=== PATIENT | female | born 1990 | race Caucasian/White ===

== ENCOUNTER 2016-06-01 11:57 | Emergency (ER) | payer OTHER ==
[~2016-06-01] VITALS: Ht 162.6 cm; Wt 61.5 kg
[~2016-06-01 11:57] MED LIST: CEPH-443 PO; LEVO500T72 PO
[2016-06-01 12:01] VITALS: Ht 162.6 cm; Wt 61.5 kg
[2016-06-01] MEDS ORDERED: AMOX1TAB10 PO (14:32)
[2016-06-01] MEDS ORDERED: NAPR-688 PO (14:32)
--- NOTE | 2016-06-02 03:56 | ERD ---
DATE OF SERVICE: 06/01/2016 HISTORY OF PRESENT ILLNESS: The patient is a 25-year-old female who presents with sore throat as we ll as gland swelling in her neck. This has been present for about 1 week. She states it is uncomfo rtable to swallow. Denies fevers, chills. Denies shortness of breath. The patient was seen here a pproximately 2 months ago and states that she was given an antibiotic when she had a similar problem and then her sore throat and swelling resolved. She states that it has now returned. REVIEW OF SYSTEMS: A 10-point review of systems is negative except as in HPI. PAST MEDICAL HISTORY: Pancreatic mass. PAST SURGICAL HISTORY: Pancreatic mass removal and . FAMILY HISTORY: Noncontributory. SOCIAL HISTORY: Denies tobacco, occasionally drinks socially, denies other drugs. PHYSICAL EXAMINATION VITAL SIGNS: Temperature 97.8, pulse 88, blood pressure 121/73, respirations 20, oxygen saturation 97% on room air. GENERAL: No acute distress. HEENT: Bilateral tonsillar swelling with very mild erythema. No exudates. Uvula is midline and mo bile. No unilateral swelling or asymmetry. NECK: Enlarged left anterior cervical lymph node that is mobile and mildly tender. EMERGENCY DEPARTMENT COURSE AND MEDICAL DECISION MAKING: The patient likely has an infectious proce ss causing tonsillar swelling and anterior cervical lymphadenopathy. Last time she had a similar pr esentation, it resolved with antibiotics. At this time, I am going to discharge her with Augmentin. I am going to give her a 10-day course of this as well as instructions to see her primary care doc tor for an ENT referral as she has had repeat symptoms. I am also giving her naproxen for pain and inflammation. I gave her return precautions to the ER as well. DISCHARGE DIAGNOSES: 1. Tonsillitis. 2. Cervical lymphadenopathy. DISPOSITION: Home in stable condition. Dictated By: SAMANTA KELLOGG Conf#: [id number] DID#: [id number]
== END 2016-06-01 14:40 | disposition home or self-care (01) ==
LOC: FTE 11:57
DX: J03.90 Acute tonsillitis, unspecified (principal); R59.0 Localized enlarged lymph nodes
CPT/HCPCS: 99283

== ENCOUNTER 2016-10-09 14:48 | Emergency (ER) | payer OTHER ==
[~2016-10-09] VITALS: Ht 157.5 cm; Wt 60.0 kg
[~2016-10-09 14:48] MED LIST changes: +AMOX1TAB10 PO; +NAPR-688 PO
[2016-10-09 15:13] VITALS: Ht 157.5 cm; Wt 60.0 kg
[2016-10-09] MEDS ORDERED: KETOROLAC 30 MG INJ IV STA (15:35)
[2016-10-09] MEDS ORDERED: SOD CHLORIDE 0.9% 1,000 ML IV STA (15:35)
[2016-10-09 15:50] LABS: URINE BLOOD (Dip) POC Negative (NEGATIVE)
[2016-10-09] MEDS ORDERED: DEXAMETHASONE 10 MG/ML 1 ML INJ IV ONE (16:00)
[2016-10-09 16:12] LABS: ADD SCAN DIFF NO
[2016-10-09 16:17] LABS: BASOPHILS % 0.4 % (0.0-2.0); EOSINOPHILS # 0.3 10^3/ul (0.0-0.5); HEMATOCRIT 41.3 % (37.0-47.0); HEMOGLOBIN 13.4 g/dl (12.0-16.0); LYMPHOCYTES # 4.1 10^3/ul (0.8-2.9); LYMPHOCYTES % 45.4 % (15.0-51.0); MEAN CORPUSCULAR HEMOGLOBIN 30.6 pg (29.0-33.0); MEAN CORPUSCULAR HGB CONC 32.4 g/dl (32.0-37.0); MEAN CORPUSCULAR VOLUME 94.3 fl (82.0-101.0); MEAN PLATELET VOLUME 10.9 fl (7.4-10.4); MONOCYTE # 1.2 10^3/ul (0.3-0.9); MONOCYTES % 12.7 % (0.0-11.0); NEUTROPHIL # 3.4 10^3/ul (1.6-7.5); NEUTROPHILS % 38.1 % (39.0-77.0); PLATELET COUNT 338 10^3/UL (140-415); RED BLOOD COUNT 4.38 10^6/ul (4.20-5.40); RED CELL DISTRIBUTION WIDTH 13.2 % (11.5-14.5)
[2016-10-09 16:33] LABS: ALBUMIN 4.5 g/dl (3.3-4.9); POTASSIUM 4.4 mmol/L (3.5-5.1)
[2016-10-09 16:35] LABS: CREATININE 0.55 mg/dl (0.44-1.00)
[2016-10-09 16:36] LABS: ALBUMIN/GLOBULIN RATIO 1.25; BILIRUBIN,INDIRECT 0.1 mg/dl (0-1.1); BILIRUBIN,TOTAL 0.1 mg/dl (0.2-1.3); TOTAL PROTEIN 8.1 g/dl (6.1-8.1)
[2016-10-09 16:37] LABS: CALCIUM 9.3 mg/dl (8.4-10.2)
--- NOTE | 2016-10-09 16:54 | ERD ---
ER Documentation Chief Complaint Date/Time DATE: 10/09/16 Chief Complaint Fever, Sore throat HPI The patient is a 26-year-old female with history of recurrent tonsillitis who presents to the Emergency Department with complaint of fever, body aches and sore throat. The patient reports that her symptoms began almost one week ago, with onset of fevers, chills, body aches and sore throat. The throat pain is constant, and worsened upon eating. She reports a history of tonsillitis in the past, for which she is being scheduled for outpatient tonsillectomy by ENT. She has a follow-up appointment to schedule her surgery on October 28. However, she presents today due to recurrent symptoms. She rates her current pain as 7/ 10. It is aching in nature. She denies any recent dental procedures, infections or trauma. Denies difficulty opening/closing the mouth, difficulty tolerating her oral secretions, or any change in phonation. Denies excessive drooling. Denies difficulty tolerating solids/liquids, despite the pain associated. Denies neck pain, neck stiffness, new rashes, rhinorrhea, nasal congestion, cough or ear pain. No other complaints at this time. ROS All systems reviewed and are negative except as per history of present illness. Medications Home Meds Active Scripts Ibuprofen* (Motrin*) 600 Mg Tab, 600 MG PO Q6, #30 TAB Prov:DENNIS MCKEON PA-C 10/09/16 Amoxicillin* (Amoxicillin*) 500 Mg Cap, 500 MG PO TID for 10 Days, CAP Prov:DENNIS MCKEON PA-C 10/09/16 Amoxicillin/Potassium Clav (Amox-Clav 875-125 mg Tablet) 875-125 mg Tab, 1 TAB PO BID, #20 TAB Prov:SAMANTA CHUNG DO 06/01/16 Naproxen* (Naproxen*) 500 Mg Tablet, 500 MG PO BID, #14 TAB Prov:SAMANTA CHUNG DO 06/01/16 Levofloxacin* (Levaquin*) 500 Mg Tablet, 500 MG PO DAILY, #7 TAB Prov:MATT LARA MD 03/15/16 Cephalexin* (Keflex*) 500 Mg Capsule, 500 MG PO TID, #21 CAP Prov:MATT LARA MD 03/15/16 Allergies Allergies: Coded Allergies: No Known Allergies (Verified Allergy, Unknown, 03/12/16) PMhx/Soc History of Surgery: Yes (caesarian x 2,removal of tumor in the pancreas) Anesthesia Reaction: No Hx Neurological Disorder: No Hx Respiratory Disorders: No Hx Cardiac Disorders: No Hx Psychiatric Problems: No Hx Miscellaneous Medical Probl: No Hx Alcohol Use: Yes (socially) Hx Substance Use: No Hx Tobacco Use: No Physical Exam Vitals Vital Signs Date Time Temp Pulse Resp B/P Pulse Ox O2 Delivery O2 Flow Rate FiO2 10/09/16 15:13 98.4 84 20 88/57 96 Physical Exam GENERAL: Well-developed, well-nourished, in no acute distress. HEENT: Head is normocephalic, atraumatic. No scleral pallor or icterus. Pupils equal, round and reactive to light. Extraocular movements intact. Conjunctiva pink. Bilaterally tympanic membranes are clear with no evidence of erythema, effusion or dulling of the light reflex. Moist mucous membranes. Posterior pharynx is erythematous with 3+ tonsils and exudates noted bilaterally. Uvula is midline. No trismus, stridor or excessive drooling. No pooling of oral secretions. No submandibular swelling. No brawny induration. Phonation is normal. NECK: Supple. Tender anterior cervical lymphadenopathy. Trachea midline. No nuchal rigidity. Full range of motion. No meningismus. RESPIRATORY: Lungs are clear to auscultation bilaterally. No rales, rhonchi or wheezing. Equal breath sounds. Normal expiratory effort. CARDIOVASCULAR: Regular rate and rhythm. S1 and S2 normal. No murmurs, rubs, or gallops. GASTROINTESTINAL: Abdomen is soft, nontender, and nondistended. Normal bowel sounds. EXTREMITIES: No clubbing, cyanosis, or edema. Normal skin perfusion. Moving all extremities. No focal swelling or erythema. NEUROLOGIC: The patient is alert, awake, and oriented. Nonfocal exam. INTEGUMENT: Skin is clean, dry and intact. No rashes, lesions or petechiae present. Normal turgor. PSYCHIATRIC: Appropriate; Cooperative. Result Diagram: 10/09/16 1545 10/09/16 1545 Results 24 hrs Laboratory Tests Test 10/09/16 15:45 10/09/16 15:51 White Blood Count 9.010^3/ul Red Blood Count 4.3810^6/ul Hemoglobin 13.4g/dl Hematocrit 41.3% Mean Corpuscular Volume 94.3fl Mean Corpuscular Hemoglobin 30.6pg Mean Corpuscular Hemoglobin Concent 32.4g/dl Red Cell Distribution Width 13.2% Platelet Count 29923^3/UL Mean Platelet Volume 10.9fl Neutrophils % 38.1% Lymphocytes % 45.4% Monocytes % 12.7% Eosinophils % 3.0% Basophils % 0.4% Nucleated Red Blood Cells % 0.0/100WBC Neutrophils # 3.410^3/ul Lymphocytes # 4.110^3/ul Monocytes # 1.210^3/ul Eosinophils # 0.310^3/ul Basophils # 0.010^3/ul Nucleated Red Blood Cells # 0.010^3/ul Sodium Level 142mmol/L Potassium Level 4.4mmol/L Chloride Level 109mmol/L Carbon Dioxide Level 29mmol/L Anion Gap 8 Blood Urea Nitrogen 17mg/dl Creatinine 0.55mg/dl Glucose Level 86mg/dl Calcium Level 9.3mg/dl Total Bilirubin 0.1mg/dl Direct Bilirubin 0.00mg/dl Indirect Bilirubin 0.1mg/dl Aspartate Amino Transf (AST/SGOT) 42IU/L Alanine Aminotransferase (ALT/SGPT) 66IU/L Alkaline Phosphatase 71IU/L Total Protein 8.1g/dl Albumin 4.5g/dl Globulin 3.60g/dl Albumin/Globulin Ratio 1.25 Bedside Urine pH (LAB) 6.0 Bedside Urine Protein (LAB) Negative Bedside Urine Glucose (UA) Negative Bedside Urine Ketones (LAB) Negative Bedside Urine Blood Negative Bedside Urine Nitrite (LAB) Negative Bedside Urine Leukocyte Esterase (L Negative Current Medications Medications (Trade) Dose Ordered Sig/Christa Route PRN Reason Start Time Stop Time Status Last Admin Dose Admin Sodium Chloride (NS) 1,000 ml @ 1,000 mls/hr Q1H STAT IV 10/09/16 15:35 10/09/16 16:34 DC 10/09/16 15:51 Ketorolac Tromethamine (Toradol) 30 mg ONCE STAT IV 10/09/16 15:35 10/09/16 15:37 DC 10/09/16 15:51 Dexamethasone 10 mg 10 mg ONCE ONCE IV 10/09/16 16:00 10/09/16 16:01 DC 10/09/16 15:51 Ampicillin Sodium/ Sulbactam Sodium (Unasyn 3gm/NS (Pmx)) 100 ml @ 100 mls/hr ONCE ONCE IVPB 10/09/16 17:00 10/09/16 17:59 DC 10/09/16 17:03 Procedures/MDM This is a 26-year-old female presenting to the Emergency Department complaining of sore throat and fever. She is non-toxic appearing and exhibits no meningeal signs. On physical examination the patient's posterior pharynx is erythematous, with exudates noted bilaterally. She had tender anterior cervical lymphadenopathy. The differential diagnosis includes, but is not limited to, pharyngitis, laryngitis, epiglottitis, peritonsillar abscess, Kulwant's angina, mononucleosis, allergic reaction, candidiasis, stomatitis, foreign body, dental pain, pneumonia. The patient's condition remained stable during her stay. After rest and administration of Decadron, Toradol, Fluids and Unasyn, the patient reports no new complaints and decreased pain. She is able to tolerate POs with no difficulty. Given that the patient presented with recent fever, tonsillar exudates, tender anterior cervical lymphadenopathy and no cough, she fulfilled all four conditions of the Cent[employer] Criteria, and I believe that the patient's symptoms are most consistent with exudative pharyngitis, likely streptococcal. Uvula is midline. There was no uvular deviation, submandibular swelling, brawny induration, elevation of the tongue, change in phonation, tripoding. I do not suspect peritonsillar abscess, retropharyngeal abscess, Kulwant's angina, epiglottitis or any other emergent medical condition. At this time, the patient is in stable condition, and therefore can be discharged home with prescriptions for ibuprofen and amoxicillin, and given strict return precautions for signs of deteriorating or worsening condition. She is advised to follow-up with her primary care provider/ENT specialist for reevaluation and further management within the next 2-3 days, or return to the ER sooner for any new or worsening symptoms. I shared my medical decision making and plan with the patient at length and in great detail, and she verbally understands and agrees with the plan for further observation and care as an outpatient. At the time of discharge , all questions were answered. Departure Diagnosis: Primary Impression: Exudative tonsillitis Additional Impression: Acute febrile illness Condition: Stable Patient Instructions: Pharyngitis, Strep (Presumed) Additional Instructions: Follow up with your ENT specialist/primary medical provider in 2-3 days for reevaluation and further management. Return to the ED sooner for any new or worsening symptoms. EDNNIS MCKEON PA-C October 09, 2016 16:54
[2016-10-09] MEDS ORDERED: AMO500 PO (16:55)
[2016-10-09] MEDS ORDERED: IBUP-1542 PO (16:55)
[2016-10-09] MEDS ORDERED: AMPICILLIN/SULB 3 GM/NS (PMX) 100 ML IVPB ONE (17:00)
== END 2016-10-09 18:15 | disposition home or self-care (01) ==
LOC: FTE 14:48
DX: J03.90 Acute tonsillitis, unspecified (principal)
CPT/HCPCS: 36415; 80053; 81003; 85025; 96374; 96375; J0295; J1100; J1885; J7030; Z7502

== ENCOUNTER 2016-12-17 00:34 | Emergency (ER) | payer OTHER ==
[~2016-12-17] VITALS: Ht 157.5 cm; Wt 60.0 kg
[~2016-12-17 00:34] MED LIST changes: +AMO500 PO; +IBUP-1542 PO
[2016-12-17 00:39] VITALS: Ht 157.5 cm; Wt 60.0 kg
[2016-12-17] MEDS ORDERED: IBUP100O10 PO (01:42)
[2016-12-17] MEDS ORDERED: PRED50TA PO (01:42)
[2016-12-17] MEDS ORDERED: AMOX250S25 PO (01:42)
--- NOTE | 2016-12-17 01:52 | ERD ---
ER Documentation Chief Complaint Date/Time DATE: 12/17/16 TIME: 01:50 Chief Complaint Chronic tonsilitis. Hard to swallow hot or cold food. dif breathing sleepin HPI 26-year-old female presents here in emergency department for complaints of sore throat for one week, patient has history of chronic tonsillitis, has seen an ENT specialist, is scheduled to possibly have removal of her tonsils. Last seen ENT specialist approximately 1 month ago. Patient states that the sore throat, worst this week, throbbing pain, 6/10 scale, is worse upon swallowing. Patient states that she has difficulty breathing and swallowing at times. Patient denies any stridor at this time. Patient denies any difficulty breathing at this time. Patient has had these problems for years now. Patient denies any fever or chills. Patient took ibuprofen for pain with mild relief. ROS All systems reviewed and are negative except as per history of present illness. Medications Home Meds Active Scripts Ibuprofen (Ibuprofen) 100 Mg/5 Ml Oral.susp, 30 ML PO Q6H Y for PAIN AND OR ELEVATED TEMP, #16 OZ Prov:DIANA GARCIA NP 12/17/16 Amoxicillin/Potassium Clav* (Augmentin*) 250 Mg/5 Ml Susp.recon, 10 ML PO Q8 for 10 Days Prov:DIANA GARCIA NP 12/17/16 Prednisone* (Prednisone*) 50 Mg Tablet, 50 MG PO DAILY, #5 TAB Prov:DIANA GARCIA NP 12/17/16 Ibuprofen* (Motrin*) 600 Mg Tab, 600 MG PO Q6, #30 TAB Prov:DENNIS MCKEON PA-C 10/09/16 Amoxicillin* (Amoxicillin*) 500 Mg Cap, 500 MG PO TID for 10 Days, CAP Prov:DENNIS MCKEON PA-C 10/09/16 Amoxicillin/Potassium Clav (Amox-Clav 875-125 mg Tablet) 875-125 mg Tab, 1 TAB PO BID, #20 TAB Prov:SAMANTA CHUNG DO 06/01/16 Naproxen* (Naproxen*) 500 Mg Tablet, 500 MG PO BID, #14 TAB Prov:SAMANTA CHUNG DO 06/01/16 Levofloxacin* (Levaquin*) 500 Mg Tablet, 500 MG PO DAILY, #7 TAB Prov:MATT LARA MD 03/15/16 Cephalexin* (Keflex*) 500 Mg Capsule, 500 MG PO TID, #21 CAP Prov:MATT LARA MD 03/15/16 Allergies Allergies: Coded Allergies: No Known Allergies (Verified Allergy, Unknown, 03/12/16) PMhx/Soc History of Surgery: Yes (caesarian x 2,removal of tumor in the pancreas) Anesthesia Reaction: No Hx Neurological Disorder: No Hx Respiratory Disorders: No Hx Cardiac Disorders: No Hx Psychiatric Problems: No Hx Miscellaneous Medical Probl: Yes (chronic tonsillitis, prediabetes) Hx Alcohol Use: Yes (socially) Hx Substance Use: No Hx Tobacco Use: No Smoking Status: Never smoker FmHx Family History: No coronary disease, No diabetes, No other Physical Exam Vitals Vital Signs Date Time Temp Pulse Resp B/P Pulse Ox O2 Delivery O2 Flow Rate FiO2 12/17/16 00:39 97.5 71 20 125/65 98 Physical Exam GENERAL: The patient is well developed and appropriate for usual state of health, in no apparent distress. HEENT: Atraumatic. Ears: Normal tympanic membrane, no erythema or bulging. No ear canal swelling. No ear discharge. Nose: normal nasal turbinates, no erythema or swelling. Normal nasal discharge. Throat: oropharynx erythematous with the right tonsillar swelling, no exudates noted. No lymphadenopathy. CHEST: Clear to auscultation bilaterally. There are no rales, wheezes or rhonchi. HEART: Regular rate and rhythm. No murmurs, clicks, rubs or gallops. No S3 or S4. ABDOMEN: Soft, nontender and nondistended. Good bowel sounds. No rebound or guarding. No gross peritonitis. No gross organomegaly or masses. No Malik sign or McBurney point tenderness. BACK: No midline or flank tenderness. EXTREMITIES: Equal pulses bilaterally. There is no peripheral clubbing, cyanosis or edema. No focal swelling or erythema. Full range of motion. Grossly neurovascularly intact. NEURO: Alert and oriented. Cranial nerves 2-12 intact. Motor strength in all 4 extremities with 5/5 strength. Sensation grossly intact. Normal speech and gait. SKIN: There is no apparent rash or petechia. The skin is warm and dry. HEMATOLOGIC AND LYMPHATIC: There is no evidence of excessive bruising or lymphedema. No gross cervical, axillary, or inguinal lymphadenopathy. Results 24 hrs Current Medications Medications (Trade) Dose Ordered Sig/Christa Route PRN Reason Start Time Stop Time Status Last Admin Dose Admin Dexamethasone (Decadron) 10 mg ONCE ONCE IM 12/17/16 02:00 12/17/16 02:01 12/17/16 01:43 Decadron was given here in emergency department up with inflammation. Procedures/MDM Medical decision making: Patient symptoms is likely consistent with acute tonsillitis, most likely strep infection. Low suspicion for peritonsillar abscess, mononucleosis, no symptoms of epiglottitis, laryngitis. No oral airway obstruction noted. No symptoms of sepsis at this time. Patient appears well and is hemodynamically stable. Patient was given for Augmentin, ibuprofen, prednisone, is advised to follow-up with primary care doctor in 2-3 days for reevaluation of symptoms. Patient is advised to do salt water gargles. Patient is advised to return to emergency department for worsening symptoms. Patient is advised to see ENT specialist for further evaluation of symptoms. Disposition: Home. Stable. Disclaimer: Inadvertent spelling and grammatical errors are likely due to EHR/ dictation software use and do not reflect on the overall quality of patient care. Also, please note that the electronic time recorded on this note does not necessarily reflect the actual time of the patient encounter. Departure Diagnosis: Primary Impression: Tonsillitis Condition: Stable Patient Instructions: When Your Child Has Pharyngitis or Tonsillitis Additional Instructions: see ENT specialist for further management and evaluation, take meds as prescribed DIANA GARCIA NP Dec 17, 2016 01:52
[2016-12-17] MEDS ORDERED: DEXAMETHASONE 10 MG/ML 1 ML INJ IM ONE (02:00)
== END 2016-12-17 01:42 | disposition home or self-care (01) ==
LOC: FTE 00:34
DX: J03.90 Acute tonsillitis, unspecified (principal); Z85.07 Personal history of malignant neoplasm of pancreas
CPT/HCPCS: 96372; J1100